=== PATIENT | female | born 2000 | race Caucasian/White ===

== ENCOUNTER 2023-10-03 23:57 | Inpatient (IN) | payer BC, SELFPAY ==
[2023-10-03] VITALS (14 sets, daily range): BP systolic 118–147; BP diastolic 61–93; PULSE 94–122; BMI 44.2
[2023-10-03 12:50] LABS: Basophils % 0.2 %; Eosinophils # 0.1 10^3/uL (0.0-0.8); Eosinophils % 0.4 %; Hematocrit 41.6 % (36-47); Lymphocytes # 2.1 10^3/uL (0.8-4.8); Lymphocytes % 16.6 %; Mean Corpuscular HGB Conc 33.9 g/dL (30-55); Mean Corpuscular Hemoglobin 29.1 pg (27-33); Mean Platelet Volume 11.7 fL (7.4-10.4); Monocytes # 0.6 10^3/uL (0.2-0.9); Monocytes % 5.1 %; Neutrophils # 9.74 10^3/uL (1.8-7.7); Neutrophils % 77.3 %; Nucleated Red Blood Cells % 0 %; Platelet Count 249 10^3/cmm (157-399); Red Blood Count 4.84 10^6/uL (3.85-5.65)
[2023-10-03 15:32] LABS: Bilirubin Urine Neg (Negative); Blood Urine 3+ (Negative); Glucose Urine UA Norm (Normal); Ketones Urine 1+ (Negative); Nitrate Urine Negative (Negative); Protein Urine 2+ (Negative); Specific Gravity, Urine 1.015 (1.005-1.030); Urine Appearance Slightly Cloudy (CLEAR); Urine Color Yellow (Yellow); pH Urine 6 (5-7)
[2023-10-03 15:33] LABS: Leukocyte Esterase Urine Negative (Negative); Urobilinogen Urine Neg (Negative)
[2023-10-03 15:34] LABS: RBC Urine 40-50 /hpf (0-2)
[2023-10-03 15:35] LABS: WBC Urine 0-4 /hpf (0-5)
[2023-10-03 15:36] LABS: Bacteria Urine 1+ /hpf; Mucus Urine 1+ /hpf
[2023-10-03 15:37] LABS: Add Urine Culture? Yes
[2023-10-03 15:39] LABS: Alanine Aminotransferase 13 U/L (0-33); Albumin Level 3.4 g/dL (3.5-5.2); Alkaline Phosphatase 153 U/L (35-105); Anion Gap 18.9 (5-19); Aspartate Amino Transferase 14 U/L (0-32); Blood Urea Nitrogen 9 mg/dL (6-20); Calcium 9.3 mg/dL (8.5-10.5); Carbon Dioxide 18 mmol/L (22-29); Chloride 105 mmol/L (98-107); Creatinine Clr Calc Pharmacy 170.2796; Globulin 3.2 g/dL (1.3-4.6); Glomerular Filtration Rate 123.9 mL/min (90-130); Glucose 93 mg/dL (65-115); Osmolality Calculated 284 mOsm/kg (285-295); Potassium 3.9 mmol/L (3.5-5.1); Sodium 138 mmol/L (136-145); Total Bilirubin 0.2 mg/dL (0.15-1.2); Total Protein 6.6 g/dL (6.6-8.7); Uric Acid 5.8 mg/dL (2.4-5.7)
[2023-10-03 15:48] LABS: Urine Creatinine 152 mg/dL (28-217)
[2023-10-03 15:49] LABS: UPRO/UCREAT Ratio 0.63 mg/mg CR; Urine Protein Random 96 mg/dL
--- NOTE | 2023-10-03 16:21 | PM.OPHPUD ---
Labor & Delivery H&P Update Date of Procedure: October 03, 2023 Date H&P Performed: 10/03/23 Admission Diagnosis: Severe gestational hypertension IUP at 39 weeks 4 days gestation Suspected macrosomia Planned procedure: Induction of labor and delivery Other information: The patient was seen today in clinic for routine follow-up visit. Her initial blood pressure was 180/94. This was repeated about 10 minutes later at rest and was 140/92. She had a third blood pressure about 15 minutes later at rest and was 160/110. Decision was made to proceed with induction. Patient's cervix is favorable at 1 cm about 50% effaced but extremely soft.
[2023-10-03 17:52] LABS: UPRO/UCREAT Ratio 0.28 mg/mg CR; Urine Creatinine 65 mg/dL (28-217); Urine Protein Random 18 mg/dL
[2023-10-03 17:55] LABS: Add Urine Microscopic? YES; Bilirubin Urine Neg (Negative); Glucose Urine UA Norm (Normal); Ketones Urine Negative (Negative); Leukocyte Esterase Urine Negative (Negative); Nitrate Urine Negative (Negative); Protein Urine Trace (Negative); Specific Gravity, Urine 1.015 (1.005-1.030); Urine Appearance Clear (CLEAR); Urine Color Yellow (Yellow); Urobilinogen Urine Norm (Negative); pH Urine 6 (5-7)
[2023-10-03 17:56] LABS: Blood Urine 2+ (Negative)
[2023-10-03 17:57] LABS: Bacteria Urine 1+ /hpf; Mucus Urine TRACE /hpf; Squamous Epithelial Cell Urine 0-4 /hpf (0-5); WBC Urine 0-4 /hpf (0-5)
[2023-10-03 17:58] LABS: Add Urine Culture? No
[2023-10-04] VITALS (48 sets, daily range): BP systolic 118–188; BP diastolic 62–97; PULSE 75–137; RESP 20; TEMP 36.9–39.3; O2SAT 92–100
--- NOTE | 2023-10-04 12:08 | PM.DELIVERY ---
Delivery Note: Date of delivery: October 04, 2023 Pre-Delivery Course: This is a 23-year-old G1, P0 at 39 weeks 5 days gestation over from the office yesterday for induction secondary to severely elevated blood pressures. Patient was at rest at the time the blood pressures were taken. She arrived at OB over 24 hours ago and due to staffing issues, not having enough nurses, we have been unable to start her Pitocin induction. The patient and her have been very understanding. They are requesting discharge home because the OB floor is still rather busy and there is no estimation of when her induction could be started and would prefer to wait at home. I Understand this but it also puts me in a bind. Does not usually have elevated blood pressures in office. Her baseline systolic is in the one-teens. She is now 39w and 5d with lots of edema and her blood pressures at rest are a good 15 points above her normal. Admittedly her blood pressures here on bedrest have been at worst only mildly elevated. I am feeling pressured to send her home for the sake of keeping the patient and her happy, however, I do not believe that is the safest scenario. Coding Level of Care Code Acute Code for Chg Fwd
[2023-10-04] MEDS: lactated ringers 1,000 ML 125 ML IV (13:19)
[2023-10-04] MEDS: oxytocin 30 UNIT/500 ML BAG IV (13:20)
[2023-10-04] MEDS: lactated ringers 1,000 ML 999 ML IV (19:48)
[2023-10-04] MEDS: ROPivacaine syringe 100 MG/50 ML SYRINGE 10 MG EPIDURAL (21:00)
--- NOTE | 2023-10-04 21:00 | P.ANESASSM_ITS ---
Pre-Anesthetic Assessment Height/Weight: Height 1.57 m Weight 109.769 kg Temp Pulse Resp BP Pulse Ox O2 Del Method 98.4 F 150 H 20 H 143/87 92 Room Air 10/04/23 18:15 10/05/23 06:45 10/04/23 18:15 10/05/23 06:45 10/04/23 21:00 10/03/23 12:28 Epidural Familial anesthetic complications: None Social No alcohol and No tobacco Exam alert, oriented x 3, clear to auscultation bilaterally and regular rate & rhythm Metabolic Morbid Obesity Anesthetic Plan ASA status: 2 Anesthesia: Regional (specify below) Risk of > 500 ml blood loss (7ml/kg in children): Yes, adequate IV access and fluids planned Medications/Allergies Current Medications Generic Name Dose Route Start Last Admin Trade Name Freq PRN Reason Stop Dose Admin Al Hydrox/Mg Hydrox/Simethicone 30 ml 10/03/23 12:26 10/05/23 05:07 Eaig-Qau-Zaqtqiybo-Kandace 30 Ml Udc PO 30 ml Q4H PRN Administration Indigestion (Use 2nd) Calcium Carbonate 1,000 mg 10/03/23 12:26 10/05/23 00:30 Calcium Carbonate 500 Mg Chew Tablet PO 1,000 mg Q4H PRN Administration Heartburn/Indigestion (Use 1st) Lactated Ringer's 1,000 mls @ 999 mls/hr 10/03/23 12:26 10/04/23 13:19 Lactated Ringers IV 125 mls/hr .Q1H1M PRN Administration Per L&D Rescitation Protocol Oxytocin 30 unit in 500 mls @ 1 mls/hr 10/03/23 12:30 10/04/23 18:00 Pitocin IV 16 milliunit/min .Q24H MARIE 16 mls/hr Titration Protocol 1 MILLIUNIT/MIN Lactated Ringer's 1,000 mls @ 999 mls/hr 10/04/23 19:47 10/04/23 22:08 Lactated Ringers IV 100 mls/hr .Q1H1M PRN Administration See label comments Ropivacaine 100 mg in 50 mls @ 10 mls/hr 10/04/23 20:00 10/05/23 03:35 Naropin Syringe EPIDURAL 10 mls/hr .Q5H MARIE Administration Ondansetron HCl 4 mg 10/03/23 12:26 10/05/23 04:20 Ondansetron 2 Mg/Ml Sdv 2 Ml IVP 4 mg Q4H PRN Administration NAUSEA AND VOMITING PFSH Anesthesia Female Reproductive History : 1 Data Anesthesia 10/03/23 12:15 10/03/23 12:15 Short CBC 10/03/23 Range/Units 12:15 WBC 12.60 H (3.29-11.43) 10^3/uL Hgb 14.10 (11.27-16.99) g/dL Hct 41.6 (36-47) % MCV 86.0 (85-98) fl Plt Count 249 (157-399) 10^3/cmm Neut % (Auto) 77.3 % Neut # (Auto) 9.74 H (1.8-7.7) 10^3/uL BMP 10/03/23 12:15 Sodium 138 Potassium 3.9 Chloride 105 Carbon Dioxide 18 L BUN 9 Creatinine 0.6 Glucose 93 Calcium 9.3 Liver Function 10/03/23 Range/Units 12:15 Total Bilirubin 0.2 (0.15-1.2) mg/dL AST 14 (0-32) U/L ALT 13 (0-33) U/L Alkaline Phosphatase 153 H (35-105) U/L Albumin 3.4 L (3.5-5.2) g/dL Urine 10/03/23 10/03/23 Range/Units 15:10 16:30 Urine Color Yellow Yellow (Yellow) Urine Appearance Slightly cloudy Clear (CLEAR) Urine pH 6 6 (5-7) Ur Specific [place] 1.015 1.015 (1.005-1.030) Urine Protein 2+ H Trace (Negative) Urine Glucose (UA) Norm Norm (Normal) Urine Ketones 1+ H Negative (Negative) Urine Nitrate Negative Negative (Negative) Urine Bilirubin Neg Neg (Negative) Ur Leukocyte Esterase Negative Negative (Negative) Urine RBC 40-50 H 5-10 H (0-2) /hpf Urine WBC 0-4 H 0-4 H (0-5) /hpf Blood Bank 10/03/23 12:15 Blood Type O Positive Rho(D) Type Rh positive Antibody Screen Negative Cardiac Studies: 2 No Data to Display Anesthesia Procedures Epidural Time Out Performed: Yes Consents Signed: Procedure Consent Consent: requested by attending/covering physician, from patient, from other, risks and benefits reviewed and patient agrees to proceed Lumbar Level: L3-L4 Epidural position: sitting Epidural procedure: sterile prep of area, 1% lidocaine to numb the area, 18 g needle, negative for paresthesia passed, neg for paresthesia, test dose given, 1.5% xylocaine 1:200k epi (5), 0.2% Ropivacaine bolus ml (5), placed PCEA, no systemic response, sterile dressing applied, L.U.D. no apparent complications and 0.2% Ropiavacaine @ mls/hr (13) Additional Comments: Multiple attempts at 2 levels VISH at 6 cm, threaded to 12 cm
[2023-10-04] MEDS: lactated ringers 1,000 ML 100 ML IV (22:08)
[2023-10-05] VITALS (38 sets, daily range): BP systolic 119–176; BP diastolic 59–90; PULSE 87–176; RESP 16–18; TEMP 36.6–36.9; O2SAT 83–98
[2023-10-05] MEDS: ROPivacaine syringe 100 MG/50 ML SYRINGE 10 MG EPIDURAL ×2 (00:16→03:35)
[2023-10-05] MEDS: calcium carbonate 500 mg Chew Tablet 1000 MG PO (00:30)
[2023-10-05] MEDS: ondansetron 2 mg/ML SDV 2 mL 4 MG IVP ×2 (01:02→04:20)
[2023-10-05] MEDS: alum-mag-hydroxide-sime 30 mL UDC PO (05:07)
[2023-10-05] MEDS: metoclopramide 5 mg/mL SDV 2 mL 10 MG IV (06:33)
--- NOTE | 2023-10-05 07:44 | P.PCNOB_ITS ---
Delivery Note: Date of delivery: October 05, 2023 Procedure: Normal spontaneous vaginal delivery Delivering Physician: Jocelyn Boudreaux MD Estimated blood loss (mL): 200 Pre-Delivery Course: The patient had routine care at [facility]. labs: Blood type O+, antibody negative, hepatitis B nonreactive, hepat itis C nonreactive, HIV nonreactive, rubella nonimmune, GC chlamydia negative, RPR nonreactive, UDS negative, Q low risk, she passed her 1 hour glucose tolerance test, she was GBS negative. Delivery: This is a 23-year-old G1, P0 admitted at 39 weeks 4 days gestation for severe hypertension in clinic. She arrived for induction around noon on October 02. Her blood pressures here at rest on the floor were mostly 130s over 80s if she did have about 2 that were 140s over 90s. Since she was deemed stable and the labor and delivery floor was rather busy her induction was held off.... Unfortunately this ended up being a good 24 hours. She was finally able to start induction on October 03 around 1:30 PM she was started on high-dose Pitocin. She underwent artificial rupture of membranes with meconium stained fluid at 1750. She received an epidural for pain management. When she was complete and +1 they started pushing and she pushed for approximately an hour before having a vaginal delivery of the male weight 3405 g, 7 pounds 8 ounces, Apgars 4, 6, 9. The infant came down very stunned with his eyes open. I immediately clamped and cut the cord and he was taken to the warmer for stimulation. He took stimulation and a short amount of PPV to initiate his respirations. He was DeLee suctioned at least 6 mL of meconium stained fluid. Cord blood was obtained. The placenta was delivered grossly intact and normal to inspection. There was a first-degree midline vaginal laceration that was sutured using 3-0 chromic. Both mother and were doing well 10 minutes after delivery. A&P Assessment and plan (1) (normal spontaneous vaginal delivery): (2) Gestational hypertension affecting first : Presenting at 39 weeks gestation. She had 2 severely elevated blood pressures in clinic but only a couple mildly elevated blood pressures on labor and delivery. Coding Level of Care Code Acute Code for Chg Fwd Diagnoses (normal spontaneous vaginal delivery) O80 Gestational hypertension affecting first O13.9
[2023-10-05] MEDS: oxytocin 30 UNIT/500 ML BAG 999 UNIT IV (08:25)
[2023-10-05] MEDS: lactated ringers 1,000 ML 125 ML IV (08:26)
--- NOTE | 2023-10-05 09:29 | PC.NURSE ---
0855 PATIENT UP TO BATHROOM AND THEN MOVED TO OB 6 PER AMBULATION.ORIENTED TO ROOM, CALL LIGHT ETC.
--- NOTE | 2023-10-05 13:18 | PC.NURSE ---
1300 TURNED OVER PATIENT CARE TO CATARINO WILLINGHAM RN AT THIS TIME.
[2023-10-05] MEDS: ibuprofen 800 mg tablet PO ×2 (14:35→20:27)
[2023-10-05] MEDS: docusate sodium 100 mg Capsule PO (17:59)
[2023-10-05] MEDS: measles,mumps,rubella pf Vial (w/diluent) 0.5 ML SUBCUT (18:00)
[2023-10-05] MEDS: benzocaine-menthol 78 gm Canister 1 SPRAY TOPICAL (20:27)
[2023-10-05 20:43] LABS: Hematocrit 34.4 % (36-47); Mean Corpuscular Hemoglobin 29.9 pg (27-33); Mean Platelet Volume 10.8 fL (7.4-10.4); Platelet Count 220 10^3/cmm (157-399); Red Blood Count 3.91 10^6/uL (3.85-5.65); Red Cell Distribution Width 14.3 % (12.1-15.1); White Blood Count 18.71 10^3/uL (3.29-11.43)
[2023-10-06 03:59] VITALS: BP 110/75; PULSE 86
--- NOTE | 2023-10-06 08:00 | ANE.PACU2 ---
Inpatient post-anesthesia follow up: Airway intact: Yes Vital signs: Temperature 98.2 F Pulse Rate 89 Respiratory Rate 16 Blood Pressure 121/79 Pulse Oximetry 99 Oxygen Delivery Me thod Room Air Oxygen Flow Rate Fraction of Inspir ed Oxygen Hydration adequate: Yes Nausea and vomiting: No Pain level: 1 Mental status: Baseline Epidural Start/End: Epidural Start Date: 10/04/23 Epidural Start Time: 20:30 Epidural End Date: 10/05/23 Epidural End Time: 07:44
[2023-10-06] MEDS: PRENATAL VIT NO.130/IRON/FOLIC 1 EACH TABLET PO (08:53)
[2023-10-06] MEDS: ibuprofen 800 mg tablet PO ×2 (08:53→16:03)
[2023-10-06] MEDS: docusate sodium 100 mg Capsule PO (08:53)
[2023-10-06 08:55] VITALS: BP 141/65; PULSE 84
[2023-10-06 16:03] VITALS: BP 133/78; PULSE 90
[2023-10-06 16:05] VITALS: TEMP 36.8
--- NOTE | 2023-10-06 17:24 | P.DS_ITS ---
Discharge Providers Date of Admission: 10/03/23 23:57 Date of Discharge: October 06, 2023 Attending Provider at Admission: Jocelyn Boudreaux MD Attending Provider at Discharge: Jocelyn Boudreaux MD Primary Care Provider: Jocelyn Boudreaux MD Reason for Visit Reason for Visit: IOL Hospital Course Hospital Course This is a 23-year-old G1 now P1 who was admitted for induction secondary to elevated blood pressures. She only had to severely elevated blood pressures in clinic at rest. Here she had a few mildly elevated blood pressures but did not require antihypertensives. She had a normal spontaneous vaginal delivery of a viable male infant. She was ambulating, tolerating a regular diet, had very light vaginal bleeding, she did have extremity edema but no calf tenderness and she was comfortable with discharge home. Physical Exam Narrative: Alert and oriented, sitting in bedside chair, heart regular rate and rhythm, lungs clear to auscultation bilaterally, abdomen is soft and nontender, fundus is firm, extremities have 2+ edema but no calf tenderness Urinary Catheter Management: Walker: Cath Placed During This Visit: yes, but has since been removed by the nurse Reason for Continuing Indwelling Catheter: Required Immobilization for Trauma or Surgery or Anesthesia Urinary Catheter Date of Insertion: 10/04/23 Urinary Catheter Time of Insertion: 21:30 Date Urinary Catheter Removed: 10/05/23 Time Urinary Catheter Discontinued: 06:54 Discharge Data Studies Completed and Pending Laboratory Results WBC 18.71 10^3/uL (3.29-11.43) H 10/05/23 20:33 RBC 3.91 10^6/uL (3.85-5.65) 10/05/23 20:33 Hgb 11.70 g/dL (11.27-16.99) 10/05/23 20:33 Hct 34.4 % (36-47) L 10/05/23 20:33 MCV 88.0 fl (85-98) 10/05/23 20:33 MCH 29.9 pg (27-33) 10/05/23 20:33 MCHC 34.0 g/dL (30-55) 10/05/23 20:33 RDW 14.3 % (12.1-15.1) 10/05/23 20:33 Plt Count 220 10^3/cmm (157-399) 10/05/23 20:33 MPV 10.8 fL (7.4-10.4) H 10/05/23 20:33 Neut % (Auto) 77.3 % 10/03/23 12:15 Lymph % (Auto) 16.6 % 10/03/23 12:15 Fann[place] % (Auto) 5.1 % 10/03/23 12:15 Eos % (Auto) 0.4 % 10/03/23 12:15 Baso % (Auto) 0.2 % 10/03/23 12:15 Neut # (Auto) 9.74 10^3/uL (1.8-7.7) H 10/03/23 12:15 Lymph # (Auto) 2.1 10^3/uL (0.8-4.8) 10/03/23 12:15 [place] # (Auto) 0.6 10^3/uL (0.2-0.9) 10/03/23 12:15 Eos # (Auto) 0.1 10^3/uL (0.0-0.8) 10/03/23 12:15 Baso # (Auto) 0.0 10^3/uL (0.0-0.1) 10/03/23 12:15 Nucleated RBC % (auto) 0 % 10/03/23 12:15 Nucleated RBCs # 0.0 /100WBC 10/03/23 12:15 Sodium 138 mmol/L (136-145) 10/03/23 12:15 Potassium 3.9 mmol/L (3.5-5.1) 10/03/23 12:15 Chloride 105 mmol/L (98-107) 10/03/23 12:15 Carbon Dioxide 18 mmol/L (22-29) L 10/03/23 12:15 Anion Gap 18.9 (5-19) 10/03/23 12:15 BUN 9 mg/dL (6-20) 10/03/23 12:15 Creatinine 0.6 mg/dL (0.5-0.9) 10/03/23 12:15 GFR Calculation 123.9 mL/min (90-130) 10/03/23 12:15 Glucose 93 mg/dL (65-115) 10/03/23 12:15 Calculated Osmolality 284 mOsm/kg (285-295) L 10/03/23 12:15 Uric Acid 5.8 mg/dL (2.4-5.7) H 10/03/23 12:15 Calcium 9.3 mg/dL (8.5-10.5) 10/03/23 12:15 Total Bilirubin 0.2 mg/dL (0.15-1.2) 10/03/23 12:15 AST 14 U/L (0-32) 10/03/23 12:15 ALT 13 U/L (0-33) 10/03/23 12:15 Alkaline Phosphatase 153 U/L (35-105) H 10/03/23 12:15 Total Protein 6.6 g/dL (6.6-8.7) 10/03/23 12:15 Albumin 3.4 g/dL (3.5-5.2) L 10/03/23 12:15 Globulin 3.2 g/dL (1.3-4.6) 10/03/23 12:15 Urine Color Yellow (Yellow) 10/03/23 16:30 Urine Appearance Clear (CLEAR) 10/03/23 16:30 Urine pH 6 (5-7) 10/03/23 16:30 Ur Specific [place] 1.015 (1.005-1.030) 10/03/23 16:30 Urine Protein Trace (Negative) 10/03/23 16:30 Urine Glucose (UA) Norm (Normal) 10/03/23 16:30 Urine Ketones Negative (Negative) 10/03/23 16:30 Urine Blood 2+ (Negative) H 10/03/23 16:30 Urine Nitrate Negative (Negative) 10/03/23 16:30 Urine Bilirubin Neg (Negative) 10/03/23 16:30 Urine Urobilinogen Norm mg/dL (Negative) 10/03/23 16:30 Ur Leukocyte Esterase Negative (Negative) 10/03/23 16:30 Urine RBC 5-10 /hpf (0-2) H 10/03/23 16:30 Urine WBC 0-4 /hpf (0-5) H 10/03/23 16:30 Ur Squamous Epith Cells 0-4 /hpf (0-5) H 10/03/23 16:30 Amorphous Sediment Not Reportable 10/03/23 16:30 Urine Bacteria 1+ /hpf (NONE) H 10/03/23 16:30 Urine Mucus Trace /hpf 10/03/23 16:30 U Random Total Protein 18 mg/dL 10/03/23 16:30 Urine Creatinine 65 mg/dL (28-217) 10/03/23 16:30 Protein/Creatinin Ratio 0.28 mg/mg CR 10/03/23 16:30 Blood Type O Positive 10/03/23 12:15 Rho(D) Type Rh positive 10/03/23 12:15 Antibody Screen Negative 10/03/23 12:15 Vitals Last Vital Signs Temp 98.0 F 10/05/23 21:19 Pulse 90 10/06/23 16:03 Resp 16 10/05/23 21:19 BP 133/78 10/06/23 16:03 Pulse Ox 98 10/05/23 21:19 O2 Del Method Room Air 10/05/23 21:19 Discharge Plan Discharge Patient Disposition: Home Condition: Stable Discharge Orders: Discharge Order (Routine); Ordered 10/06/23 Ordered By: Jocelyn Boudreaux Referrals: Jocelyn Boudreaux MD [Primary Care Provider] - 11/07/23 1:00 pm Discharge Diet: Usual diet Discharge Activity: Limit activity as instructed Patient Instructions: Depression (DC), Bleeding (DC), Opioid Safety (DC), Preeclampsia and Eclampsia After Delivery (GEN), Hemorrhage (DC), OB Discharge Report, OB Food/Drug Interaction Guide, OB Care at Home, Opioid Safety, OB Vaginal Deliveries, Abnormal Bleeding Activity Restrictions/Additional Instructions: Nothing per vagina for 6 weeks Discharge Attestations Time Spent in Discharge Care*: less than 30 min Quality Metrics Clinical Quality Measures [ No reported AMI, CVA or VTE this stay] Coding Level of Care Code Acute Code for Chg Julio
[2023-10-06 20:10] VITALS: BP 121/79; PULSE 89; RESP 16; TEMP 36.7; O2SAT 99
[2023-10-06 20:18] VITALS: BP 121/79; PULSE 89; RESP 16; TEMP 36.8; O2SAT 99
== END 2023-10-06 20:18 | disposition home or self-care (01) | DRG 807 ==
PROVIDERS: Admitting Provider Family Medicine; PCP Family Medicine; Visit Provider Family Medicine
DX: O14.14 Severe pre-eclampsia complicating childbirth (principal); Z37.0 Single live birth; O70.0 First degree perineal laceration during delivery; O77.0 Labor and delivery complicated by meconium in amniotic fluid; Z3A.39 39 weeks gestation of pregnancy; Z23 Encounter for immunization
CPT/HCPCS: 36415; 51702; 59025; 59409; 80053; 81001; 82570; 84156; 84550; 85025; 85027; 86850; 86900; 87086; 90707; 96372; 96374; 96376; 99211; J2405; J2590; J2765; J2795; J7120